=== PATIENT | male | born 1960 | race Caucasian/White ===

== ENCOUNTER → 2016-10-25 | Outpatient (RCR) | payer BC ==
[~2016-10-25] MED LIST: ASPIR 8181 MG ORAL; ATORVASTATIN CA40 MG ORAL; PROSCAR5 MG ORAL
== END | disposition home or self-care (01) ==
LOC: PTY 10:00
DX: M47.26 Other spondylosis with radiculopathy, lumbar region (principal); M75.02 Adhesive capsulitis of left shoulder

== ENCOUNTER 2016-10-28 10:00 | Outpatient (RCR) | payer BC | END 2016-11-25 | disposition home or self-care (01) | LOC: PTY 10:00 | DX: M47.26 Other spondylosis with radiculopathy, lumbar region (principal) ==

== ENCOUNTER 2016-11-28 11:00 | Outpatient (RCR) | payer BC | END 2016-12-26 | disposition home or self-care (01) | LOC: PTY 11:00 | DX: M47.26 Other spondylosis with radiculopathy, lumbar region (principal) ==